=== PATIENT | female | born 1955 | race Caucasian/White ===

== ENCOUNTER 2020-07-24 10:16 | Outpatient (REF) | payer MEDICARE, SELFPAY ==
[2020-07-24 12:20] LABS: Alanine Aminotransferase 10 U/L (0-31); Albumin Level 4.4 g/dL (3.5-5.0); Alkaline Phosphatase 111 U/L (39-117); Anion Gap 17 (12-20); Aspartate Amino Transferase 19 U/L (5-31); Bilirubin Total 0.3 mg/dL (0.0-1.0); Blood Urea Nitrogen 27 mg/dL (9-16); Calcium 9.6 mg/dL (8.4-10.2); Carbon Dioxide 27 mmol/L (22-29); Chloride 100 mmol/L (96-108); Cholesterol 286 mg/dL; Estimated Glomerular Filt Rate 38; Glucose Random 98 mg/dL (60-115); HDL Cholesterol 45 mg/dL; LDL Cholesterol Calculated 185 mg/dl; Potassium 4.4 mmol/l (3.3-5.1); Sodium 140 mmol/L (135-145); Total Protein 7.6 g/dL (6.5-8.0); Triglycerides 281 mg/dL
[2020-07-24 12:32] LABS: Creatinine Urine 257.19 mg/dL; Microalbum/Creatinine Ratio Ur 63.3 ug/mg cr
== END 2020-07-24 10:17 | disposition home or self-care (01) ==
LOC: HO.LAB 10:16
PROVIDERS: PCP Family Medicine; Visit Provider Family Medicine
DX: I10 Essential (primary) hypertension (principal)
CPT/HCPCS: 80053; 80061; 82043; 84443

== ENCOUNTER → 2020-07-31 13:09 | Outpatient (BNVA) | payer MEDICARE, SELFPAY | PROVIDERS: PCP Family Medicine; Visit Provider Internal Medicine | DX: I26.99 Other pulmonary embolism without acute cor pulmonale (principal); Z79.01 Long term (current) use of anticoagulants; Z51.81 Encounter for therapeutic drug level monitoring | CPT/HCPCS: 85610; 99211 ==

== ENCOUNTER → 2020-08-14 10:04 | Outpatient (BNVA) | payer MEDICARE, SELFPAY | PROVIDERS: PCP Family Medicine; Visit Provider Internal Medicine | DX: I26.99 Other pulmonary embolism without acute cor pulmonale (principal); Z51.81 Encounter for therapeutic drug level monitoring; Z79.01 Long term (current) use of anticoagulants | CPT/HCPCS: 85610; 99211 ==

== ENCOUNTER 2020-08-27 10:00 | Outpatient (RCR) | payer MEDICARE, SELFPAY ==
--- NOTE | 2020-07-30 10:20 | MHC.PT.OD ---
[facility] [place] Office [place] Office [place] Office [address] Joi Gold [address] [phone] F: [phone] F: [phone] F: [phone] F: [phone] Physical Therapy Daily Note Diagnosis: LOW BACK PAIN Date of Surgery: Date of Evaluation: 05/31/20 Treatments to Date: 17 Cancellations to Date: 1 No Shows to Date: 0 Authorized Visits: 18 Insurance End Date: 09/02/20 Precautions/ Contraindications:h/o cancer Subjective: SAME . PAIN IS PRIMARILY WHEN PERFORMING SIT TO STAND XFERS AND DURING INITIAL FEW MOMENTS OF WALKING. ANNABELLA WILL BE SEEING MD THIS WEDNESDAY Pain Score: 6 Pain Location: RIGHT ANTERIOR THIGH AND GROIN Objective Flowsheet: Tests & Measures LE MMT TESTING REVEALS RIGHT HIP 5/5 T/O WITH EXCEPTION OF HIP FLEXION 3/5 (PAIN) HAMSTRING ROM IS 140 DEGREES RIGHT, 150 DEGREES LEFT PSOAS ROM RYAN 130 DEGREES CONCETTA AND FADIR TESTS (+) ON RIGHT (+) QUADRANT TEST RIGHT Exercises recumbent bike (bucket seat) seat at 7 x 12 mins, QS level 1 BRIDGES 3 X 10 HL hip add ball squeeze 3 x 10 hip ER with RTB 3 x 10 SLR 2 x5 sets saq 3 x 15 ryan prone knee flexion stretching with strap 2 reps x 30 seconds perf ryan SL HIP ABD 3 X 10 ROCKER BOARD IN AP AND LATERAL ORIENTATIONS FOR WEIGHT SHIFT AND BALANCE ACTIVITIES 4 INCH STEP UPS AND SIDE UPS 30 REPS EA posterior, lateral and inferior hip mobilizations grades 2 and 3 Soft tissue mobilizaiton techniques to anterior thigh and psoas Modalities prior to mobilization MH to anterior thigh x 8 mins Assessment: PAIN LEVELS HAVE REMAINED ABOUT THE SAME AND DYSFUNCTION IS PRIMARILY FOLLOWING SIT TO STAND XFERS AND INITIAL WALKING. SHE WILL F/U WITH MD ON WEDNESDAY. OVERALL RELIEF WITH JOINT MOBILIZATION AND INCREASED STRENGTH IS DEMONSTRATED BUT PAIN LEVELS HAVE NOT SUBJECTIVELY CHANGED. SHE DOES DEMONSTRATE S/S OF HIP OA WITH SPECIAL TESTING AND MAY BENEFIT FROM FURTHER IMAGING STUDIES. PT Plan: HIP AND CORE STRENGTHENING, GAIT AND BALANCE TRAINING, STMT AND Jt MOBILIZATIONS, Pt EDUC - REVIEW AND PROGRESS HEP Discharge Today? No Short Term Goals: independent with hep and self management of symptoms in 2 weeks (MET) Range Technician Goals: TO PERFORM ALL ADLs WITHOUT RESTRICTION AND PAIN NO GREATER THAN 3/10 IN 5 WEEKS TO DEMONSTRATE FULL FUNCTIONAL SQUAT WITH CORRECT MECHANICS AND WITHOUT CUING IN 5 WEEKS TO REPORT AMBULATING WITHOUT RESTRICTION ON VARIOUS SURFACES IN 5 WEEKS Electronically signed by: ESTEFANI SIMPSON PT, DPT
--- NOTE | 2020-08-22 15:10 | MHC.PT.DC ---
[facility] [place] Office [place] Office [place] Office [address] Joi Gold [address] [phone] F: [phone] F: [phone] F: [phone] F: [phone] Physical Therapy Discharge Report Diagnosis: Low back pain Date of Surgery: Date of Evaluation: 05/31/20 Date of Discharge: 08/22/20 Treatments to Date: 23 Cancellations to Date: 1 No Shows to Date: 0 Discharge Status: Achieved Goals Improved Function Independent with HEP Recommend MD Follow-up Discharge Summary: Luz Maria has progressed well in PT and is independent with HEP and is DCed to home at this time. She does continue to demonstrate significant hip stiffness when performing sit to stand transfers and in initating gait. At this time she appears to have plateaued in therapy so we recommend MD follow up and possible radiographs. Electronically signed by: Elaine Varela PT, DPT Please sign and return to therapist. Thank you for your referral.
--- NOTE | 2020-08-27 13:51 | MHC.PT.DC ---
[facility] [place] Office [place] Office [place] Office [address] Joi Gold [address] [phone] F: [phone] F: [phone] F: [phone] F: [phone] Physical Therapy Discharge Report Diagnosis: Low back pain Date of Surgery: Date of Evaluation: 05/31/20 Date of Discharge: 08/22/20 Treatments to Date: 23 Cancellations to Date: 1 No Shows to Date: 0 Discharge Status: Achieved Goals Improved Function Independent with HEP Recommend MD Follow-up Discharge Summary: Luz Maria has progressed well in PT and is independent with HEP and is DCed to home at this time. She does continue to demonstrate significant hip stiffness when performing sit to stand transfers and in initating gait. At this time she appears to have plateaued in therapy so we recommend MD follow up and possible radiographs. Electronically signed by: Elaine Varela PT, DPT Please sign and return to therapist. Thank you for your referral.
== END 2021-06-10 13:30 | disposition home or self-care (01) ==
LOC: HO.PT 10:00
PROVIDERS: PCP Family Medicine; Visit Provider Family Medicine
DX: S39.012D Strain of muscle, fascia and tendon of lower back, subsequent encounter (principal)
CPT/HCPCS: 97110; 97140; 97164; 97530

== ENCOUNTER → 2020-09-11 09:57 | Outpatient (BNVA) | payer MEDICARE, SELFPAY | PROVIDERS: PCP Family Medicine; Visit Provider Internal Medicine | DX: I26.99 Other pulmonary embolism without acute cor pulmonale (principal); Z51.81 Encounter for therapeutic drug level monitoring; Z79.01 Long term (current) use of anticoagulants | CPT/HCPCS: 85610; 99211 ==

== ENCOUNTER → 2020-10-08 10:32 | Outpatient (BNVA) | payer MEDICARE, SELFPAY | PROVIDERS: PCP Family Medicine; Visit Provider Internal Medicine | DX: I26.99 Other pulmonary embolism without acute cor pulmonale (principal); Z51.81 Encounter for therapeutic drug level monitoring; Z79.01 Long term (current) use of anticoagulants | CPT/HCPCS: 85610; 99211 ==

== ENCOUNTER → 2020-10-22 10:39 | Outpatient (BNVA) | payer MEDICARE, SELFPAY | PROVIDERS: PCP Family Medicine; Visit Provider Internal Medicine | DX: I26.99 Other pulmonary embolism without acute cor pulmonale (principal); Z51.81 Encounter for therapeutic drug level monitoring; Z79.01 Long term (current) use of anticoagulants | CPT/HCPCS: 85610; 99211 ==

== ENCOUNTER → 2020-11-05 10:41 | Outpatient (BNVA) | payer MEDICARE, SELFPAY | PROVIDERS: PCP Family Medicine; Visit Provider Internal Medicine | DX: I26.99 Other pulmonary embolism without acute cor pulmonale (principal); Z51.81 Encounter for therapeutic drug level monitoring; Z79.01 Long term (current) use of anticoagulants | CPT/HCPCS: 85610; 99211 ==

== ENCOUNTER → 2020-12-04 10:09 | Outpatient (BNVA) | payer MEDICARE, SELFPAY | PROVIDERS: PCP Family Medicine; Visit Provider Internal Medicine | DX: I26.99 Other pulmonary embolism without acute cor pulmonale (principal); Z51.81 Encounter for therapeutic drug level monitoring; Z79.01 Long term (current) use of anticoagulants | CPT/HCPCS: 85610; 99211 ==

== ENCOUNTER → 2021-01-02 11:05 | Outpatient (BNVA) | payer MEDICARE, SELFPAY | PROVIDERS: PCP Family Medicine; Visit Provider Internal Medicine | DX: I26.99 Other pulmonary embolism without acute cor pulmonale (principal); Z51.81 Encounter for therapeutic drug level monitoring; Z79.01 Long term (current) use of anticoagulants | CPT/HCPCS: 85610; 99211 ==

== ENCOUNTER 2021-01-22 12:40 | Emergency (ER) | payer MEDICARE, SELFPAY ==
--- NOTE | ~2021-01-22 | CT_ITS ---
EXAMINATION: CT HEAD WITHOUT CONTRAST CLINICAL INFORMATION: Dizziness and weakness COMPARISON: None TECHNIQUE: Contiguous axial imaging was performed from the skull base to vertex without intravenous administration of contrast. This CT examination was performed using dose optimization techniques as appropriate, variously including the following: *Automated exposure control *Adjustment of mA and/or kV according to patient size (this includes techniques or standardized protocols for targeted exams where dose is matched to indication/reason for exam; i.e. extremities or head) *Use of iterative reconstruction technique DLP: 601 mGy-cm FINDINGS: There is no evidence of acute intracranial hemorrhage or territorial infarction. No abnormal mass effect or midline shift is appreciated. Anderson-white differentiation is well preserved. No extra-axial fluid collections. The ventricular system and cortical sulci are normal in size for age. There are areas of low density in the periventricular and subcortical white matter, most consistent with sequelae of microvascular ischemic change. 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 The osseous structures and soft tissues are normal. There are calcifications of the cavernous internal carotid arteries. The visualized paranasal sinuses and mastoid air cells are well aerated. CT/CT head/brain wo con IMPRESSION: Chronic microvascular ischemic changes with no CT evidence of acute intracranial abnormality.
--- NOTE | ~2021-01-22 | CT_ITS ---
EXAMINATION: CTA CHEST PE STUDY, CT ABDOMEN AND PELVIS CLINICAL INFORMATION: Short of breath. Weakness, weight loss COMPARISON: No pertinent prior studies are available for comparison. TECHNIQUE: Prior to contrast administration, noncontrast localization images were obtained. After the administration of 100 mL of Omnipaque 350 nonionic IV contrast, contiguous thin slice helical images were obtained through the thorax. Following this the examination was continued through the abdomen and then pelvis. Reformatted MIP images in the coronal and sagittal planes as well as thin slice reformatted images of coronal and sagittal planes were obtained at the acquisition workstation. This CT examination was performed using dose optimization techniques as appropriate, variously including the following: *Automated exposure control *Adjustment of mA and/or kV according to patient size (this includes techniques or standardized protocols for targeted exams where dose is matched to indication/reason for exam; i.e. extremities or head) *Use of iterative reconstruction technique DLP: 1132 mGy-cm. FINDINGS: CHEST: The bolus timing on this study was acceptable for visualization of the pulmonary arterial tree. There are no intraluminal pulmonary arterial filling defects present to suggest pulmonary embolism. Unfortunately there are bilateral pulmonary nodules including a 2.3 cm centrally cavitating right upper lobe pulmonary nodule and a medial left lower lobe pleural-based 3.2 cm nodule/mass. The older bilateral pulmonary nodules are smaller with distribution suggesting metastatic spread. There is a moderate-sized right pleural effusion with associated partial collapse of the right lower lobe and right middle lobe as well as pleural-based nodularity. There is focal narrowing of the right mainstem bronchus with encasement from a right infrahilar mass difficult to accurately measure from the adjacent collapsed lung but this measures at least 5.3 cm in maximal diameter. This appears to be contiguous with right hilar adenopathy extending into the subcarinal location. The heart is normal in size. No evidence of ventricular septal bowing or right heart strain. The mediastinum and great vessels are normal. There is no pericardial effusion or pericardial thickening. ABDOMEN/PELVIS: Liver, Gallbladder and Biliary Tree: The liver is normal in size, shape, and attenuation. No focal hepatic lesion or biliary ductal dilatation is present. The gallbladder is unremarkable with no evidence of radiopaque gallstones, gallbladder wall thickening, or obvious pericholecystic inflammatory changes. Pancreas: Unremarkable. Spleen: Unremarkable. Adrenal Glands: Unremarkable. Kidneys and Ureters: The kidneys are normal in size, shape, and attenuation. No hydronephrosis, hydroureter, or calculi seen. No perinephric stranding. Bladder: Decompressed but otherwise unremarkable Gastrointestinal Tract: There is scattered colonic diverticulosis but no colonic wall thickening or pericolonic inflammatory change to suggest diverticulitis. Normal-appearing appendix in the right lower quadrant. Visualized small bowel unremarkable Abdominal Wall: There is a ill-defined peripherally enhancing 4.8 cm mass lesion within the right gluteal musculature likely representing metastatic focus Lymphovascular Structures: Vascular calcification within the aorta iliac system Pelvic Viscera: Unremarkable. Osseous Structures: Chronic deformity of the right femoral neck suggesting a chronic basicervical neck fracture. This does not appear to be acute but could be clinically correlated. Multilevel degenerative changes seen throughout the spine CT/CT angio chest PE protocol IMPRESSION: Unfortunately there are multiple pulmonary nodules and masses with evidence suggesting metastatic disease as described above. Likely the primary lesion arose in the medial infrahilar right lower lobe with direct extension into the right hilar location. There is moderate size right pleural effusion with multiple pleural-based nodules seen. Bilateral pulmonary nodules are noted otherwise as described above. Additionally there is a 4.8 cm soft tissue mass in the right gluteal musculature is also more suggestive of a metastatic lesion VTE: Negative This critical result was discussed with Saranya at 01/22/2021 7:32 PM and it was ascertained that the content and urgency of the report was understood at the time of direct communication.
[2021-01-22 12:55] VITALS: BP 127/75; PULSE 100; RESP 18; TEMP 36.6; O2SAT 96
[2021-01-22 13:27] LABS: Basophils Absolute Auto 0.1 X10*3/uL (0.0-0.2); Eosinophils Percent Auto 6.7 % (0-4); Hematocrit 35.7 % (37-47); Hemoglobin 11.8 g/dl (12.0-16.0); Imm Gran Abs Auto 0.08 X10*3/uL (0.00-0.03); Imm Gran Pct Auto 0.6 % (0.0-0.4); Lymphocytes Absolute Auto 0.6 X10*3/uL (1.2-4.9); Lymphocytes Percent Auto 3.9 % (20-40); MANUAL DIFF FLAG SCAN; Mean Corpuscular HGB Conc 33.1 g/dl (31.0-35.0); Mean Corpuscular Hemoglobin 29.4 pg (27.0-33.0); Mean Corpuscular Volume 88.8 fL (80-98); Monocytes Absolute Auto 0.8 X10*3/uL (0.1-1.2); Monocytes Percent Auto 5.5 % (2-11); Neutrophils Absolute Auto 11.7 X10*3/uL (2.0-8.3); Neutrophils Percent Auto 82.3 % (45-73); Platelet Count 571 X10*3/uL (160-400); Red Blood Count 4.02 X10*6/uL (4.20-5.50); Red Cell Distribution Width 13.9 % (11.0-16.0); SCAN SMEAR FLAG 1; White Blood Count 14.3 X10*3/uL (4.8-10.8)
[2021-01-22 13:45] LABS: SLIDE REVIEW VERIFIED
[2021-01-22 14:11] LABS: Anion Gap 23 (12-20); Blood Urea Nitrogen 27 mg/dL (9-16); Calcium 9.6 mg/dL (8.4-10.2); Carbon Dioxide 25 mmol/L (22-29); Chloride 90 mmol/L (96-108); Creatinine Clr Calc Pharmacy 33.7; Estimated Glomerular Filt Rate 38; Glucose Random 144 mg/dL (60-115); Potassium 3.4 mmol/L (3.3-5.1); Sodium 135 mmol/L (135-145)
--- NOTE | 2021-01-22 17:51 | ED.GENADULT ---
HPI - General Adult General Chief complaint: General Medical Stated complaint: Weakness Source: patient Mode of arrival: ambulatory Limitations: no limitations History of Present Illness HPI narrative: 65-year-old female with past medical history of cancer of the vulva in remission since 2019 after chemotherapy and radiation treatments, history of PE, hypertension, and hyperlipidemia presents with several months of weakness, weight loss, wheezing, and fatigue. She does not describe the loss of sensation of wanting to eat, she states that she is too tired to eat. She does not report any nausea or vomiting, denies chest pain or pressure, palpitations, abdominal pain, abdominal distention, dysuria, hematuria, or edema. Onset (ago): month(s) Location: chest Radiation: non-radiation Severity: severe Associated symptoms: cough, malaise and weakness Treatments prior to arrival: none Related Data Home Medications Medication Instructions Recorded Confirmed bromfenac 0.07 % eye drops 0 drp OPHTHALMIC (EYE) 11/04/20 12/04/20 loteprednol etabonate 0.38 % eye drp OPHTHALMIC-RIGHT 11/04/20 12/04/20 gel drops ofloxacin 0.3 % eye drops 0 drp OPHTHALMIC (EYE) 11/04/20 12/04/20 Previous Rx's Medication Instructions Recorded amlodipine 10 mg tablet 10 mg PO DAILY 90 Days #90 tab 08/01/20 hydrochlorothiazide 25 mg tablet 25 mg PO DAILY 90 Days #90 tab 08/01/20 warfarin 4 mg tablet 4 mg PO DAILY #90 tab 09/16/20 diclofenac sodium 1 % topical gel 2 g TOPICAL BID #100 g 10/17/20 metoprolol succinate 25 mg 25 mg PO DAILY #30 tab 01/17/21 tablet,extended release 24 hr levofloxacin 750 mg PO Q24H 6 Days #6 tab 01/22/21 lorazepam [Ativan] 0.5 mg PO TID PRN #20 tab 01/22/21 Allergies Allergy/AdvReac Type Severity Reaction Status Date / Time mold Allergy Severe diff Verified 11/05/20 10:46 breathing Review of Systems Review of Systems: Constitutional: Positive weight loss, positive weakness, positive fatigue No Fever, No Chills ENT/Mouth: No sore throat, No Rhinorrhea, No Swallowing Difficulty Eyes: No Eye Pain, No Swelling, No Redness Cardiovascular: No Chest Pain, positive SOB, No Orthopnea, no Edema Respiratory: Positive Cough, No Sputum, No Wheezing, positive dyspnea Gastrointestinal: No Nausea, No Vomiting, No Diarrhea, No abdominal Pain, No Hematochezia, No Melena Genitourinary: No Dysuria, No Urinary Frequency, No Hematuria Musculoskeletal: No joint pain, No Myalgias Skin: No Skin Lesions, No rash Neuro: No Weakness, No Numbness, No Dizziness, No Headache Psych: No Anxiety/Panic, No Depression Heme/Lymph: No Bruising, No Lymphadenopathy Endocrine: No Polyuria, No Polydipsia Yes all other systems are reviewed and are negative [facility] Past Medical History Attestation statement: The following information was validated with the patient. Source: old records reviewed Medical History Cataracts, both eyes Diarrhea HTN (hypertension) Pneumonia Pulmonary embolism Vulva cancer Family History Family History Father Heart failure Lymphoma Skin cancer HTN (hypertension) CVD (cardiovascular disease) Mother Myocardial infarction Breast cancer CVD (cardiovascular disease) Brother No problems noted. Son No problems noted. Daughter No problems noted. Social History Social History Advance Directives: No Advance Directives Information Provided: Yes Physical Exam Vital Signs: Vital Signs: Last Vital Signs Temp 97.8 F 01/22/21 20:46 Pulse 94 01/22/21 20:46 Resp 18 01/22/21 20:46 BP 137/84 01/22/21 20:46 Pulse Ox 95 01/22/21 20:46 Body Mass Index 20.0 Appearance: Alert. Oriented X3. No acute distress. Appears fatigued and pale Eyes: Pupils equal, round and reactive to light. EOMI, nonicteric sclera ENT: Pharynx normal. Dry mucous membranes Neck: Normal inspection. Neck supple. CVS: Tachycardic heart rate and rhythm. Pulses normal. Respiratory: No respiratory distress. Lung sounds diminished bilaterally Abdomen: Soft and nontender. No palpable masses. Skin: Skin warm and dry. Normal skin color. Normal skin turgor. Extremities: No lower extremity edema. Strength 5/5, full range of motion Neuro: No motor deficit. No sensory deficit. Cranial nerves 2-12 intact, no focal neural deficits Course Course Course Narrative: 65-year-old female presents with weakness, fatigue, weight loss. Does have a history of cancer and PE, will order CT of head, chest, abdomen and pelvis to rule out PE, possible metastatic disease. CBC indicates white count of 14.3 hemoglobin and hematocrit of 11.8/35.7, chemistries show a small anion gap 23 BUN of 27. Will resuscitate with fluids prior to contrast. Head CT clear, chest CTA abdomen and pelvis indicates metastatic disease to the lungs and gluteus muscle. This was discussed in detail with patient, patient will follow-up with her own oncologist and primary care physician. Considering her elevated white count and fluid collection we will treat with Levaquin, provide albuterol inhaler for shortness of breath, and give Ativan for anxiety and shortness of breath as needed. Patient is afebrile, and would like to be discharged to home versus inpatient admitted or penitentiary facility, case management social versus consult. Patient verbalized understanding of and agrees to plan for discharge home. Medical Decision Making Differential Diagnosis Differential Diagnosis: CVA, PE, metastatic disease, anemia Medical Records Medical records reviewed: Yes I reviewed the patient's medical records. Lab Data Lab results reviewed: Yes I reviewed the patient's lab results. Result diagrams: 01/22/21 13:12 01/22/21 13:12 Labs: Lab Results 01/22/21 01/22/21 01/22/21 Range/Units 13:12 13:12 13:12 WBC 14.3 H (4.8-10.8) X10*3/uL RBC 4.02 L (4.20-5.50) X10*6/uL Hgb 11.8 L (12.0-16.0) g/dl Hct 35.7 L (37-47) % MCV 88.8 (80-98) fL MCH 29.4 (27.0-33.0) pg MCHC 33.1 (31.0-35.0) g/dl RDW 13.9 (11.0-16.0) % Plt Count 571 H (160-400) X10*3/uL MPV 8.0 L (9.4-12.3) fL Immature Gran % (Auto) 0.6 H (0.0-0.4) % Neut % (Auto) 82.3 H (45-73) % Lymph % (Auto) 3.9 L (20-40) % Perry % (Auto) 5.5 (2-11) % Eos % (Auto) 6.7 H (0-4) % Baso % (Auto) 1.0 (0-2) % Lymph # (Auto) 0.6 L (1.2-4.9) X10*3/uL Perry # (Auto) 0.8 (0.1-1.2) X10*3/uL Eos # (Auto) 1.0 H (0.0-0.4) X10*3/uL Baso # (Auto) 0.1 (0.0-0.2) X10*3/uL Abs Immat Gran (auto) 0.08 H (0.00-0.03) X10*3/uL Absolute Neuts (auto) 11.7 H (2.0-8.3) X10*3/uL Absolute Nucleated RBC 0.000 (0.0-0.012) X10*3/uL Nucleated RBC % (auto) 0.0 (0.0-0.2) /100WBC Smear Tech's Comments VERIFIED Hold Blue Top SEE NOTE Sodium 135 (135-145) mmol/L Potassium 3.4 (3.3-5.1) mmol/L Chloride 90 L (96-108) mmol/L Carbon Dioxide 25 (22-29) mmol/L Anion Gap 23 H (12-20) BUN 27 H (9-16) mg/dL Creatinine 1.39 (0.5-1.4) mg/dL Estim Creat Clear Calc 33.7 Estimated GFR 38 Random Glucose 144 H D (60-115) mg/dL Calcium 9.6 (8.4-10.2) mg/dL Imaging Data CT scan - head: Attestation: I personally reviewed and interpreted this imaging study as follows: Radiologist's impression: EXAMINATION: CT HEAD WITHOUT CONTRAST CLINICAL INFORMATION: Dizziness and weakness COMPARISON: None TECHNIQUE: Contiguous axial imaging was performed from the skull base to vertex without intravenous administration of contrast. This CT examination was performed using dose optimization techniques as appropriate, variously including the following: *Automated exposure control *Adjustment of mA and/or kV according to patient size (this includes techniques or standardized protocols for targeted exams where dose is matched to indication/reason for exam; i.e. extremities or head) *Use of iterative reconstruction technique DLP: 601 mGy-cm FINDINGS: There is no evidence of acute intracranial hemorrhage or territorial infarction. No abnormal mass effect or midline shift is appreciated. Anderson-white differentiation is well preserved. No extra-axial fluid collections. The ventricular system and cortical sulci are normal in size for age. There are areas of low density in the periventricular and subcortical white matter, most consistent with sequelae of microvascular ischemic change. 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 The osseous structures and soft tissues are normal. There are calcifications of the cavernous internal carotid arteries. The visualized paranasal sinuses and mastoid air cells are well aerated. CT/CT head/brain wo con IMPRESSION: Chronic microvascular ischemic changes with no CT evidence of acute intracranial abnormality. CTA PE and abdomen pelvis: Attestation: I personally reviewed and interpreted this imaging study as follows: Radiologist's impression: EXAMINATION: CTA CHEST PE STUDY, CT ABDOMEN AND PELVIS CLINICAL INFORMATION: Short of breath. Weakness, weight loss COMPARISON: No pertinent prior studies are available for comparison. TECHNIQUE: Prior to contrast administration, noncontrast localization images were obtained. After the administration of 100 mL of Omnipaque 350 nonionic IV contrast, contiguous thin slice helical images were obtained through the thorax. Following this the examination was continued through the abdomen and then pelvis. Reformatted MIP images in the coronal and sagittal planes as well as thin slice reformatted images of coronal and sagittal planes were obtained at the acquisition workstation. This CT examination was performed using dose optimization techniques as appropriate, variously including the following: *Automated exposure control *Adjustment of mA and/or kV according to patient size (this includes techniques or standardized protocols for targeted exams where dose is matched to indication/reason for exam; i.e. extremities or head) *Use of iterative reconstruction technique DLP: 1132 mGy-cm. FINDINGS: CHEST: The bolus timing on this study was acceptable for visualization of the pulmonary arterial tree. There are no intraluminal pulmonary arterial filling defects present to suggest pulmonary embolism. Unfortunately there are bilateral pulmonary nodules including a 2.3 cm centrally cavitating right upper lobe pulmonary nodule and a medial left lower lobe pleural-based 3.2 cm nodule/mass. The older bilateral pulmonary nodules are smaller with distribution suggesting metastatic spread. There is a moderate-sized right pleural effusion with associated partial collapse of the right lower lobe and right middle lobe as well as pleural-based nodularity. There is focal narrowing of the right mainstem bronchus with encasement from a right infrahilar mass difficult to accurately measure from the adjacent collapsed lung but this measures at least 5.3 cm in maximal diameter. This appears to be contiguous with right hilar adenopathy extending into the subcarinal location. The heart is normal in size. No evidence of ventricular septal bowing or right heart strain. The mediastinum and great vessels are normal. There is no pericardial effusion or pericardial thickening. ABDOMEN/PELVIS: Liver, Gallbladder and Biliary Tree: The liver is normal in size, shape, and attenuation. No focal hepatic lesion or biliary ductal dilatation is present. The gallbladder is unremarkable with no evidence of radiopaque gallstones, gallbladder wall thickening, or obvious pericholecystic inflammatory changes. Pancreas: Unremarkable. Spleen: Unremarkable. Adrenal Glands: Unremarkable. Kidneys and Ureters: The kidneys are normal in size, shape, and attenuation. No hydronephrosis, hydroureter, or calculi seen. No perinephric stranding. Bladder: Decompressed but otherwise unremarkable Gastrointestinal Tract: There is scattered colonic diverticulosis but no colonic wall thickening or pericolonic inflammatory change to suggest diverticulitis. Normal-appearing appendix in the right lower quadrant. Visualized small bowel unremarkable Abdominal Wall: There is a ill-defined peripherally enhancing 4.8 cm mass lesion within the right gluteal musculature likely representing metastatic focus Lymphovascular Structures: Vascular calcification within the aorta iliac system Pelvic Viscera: Unremarkable. Osseous Structures: Chronic deformity of the right femoral neck suggesting a chronic basicervical neck fracture. This does not appear to be acute but could be clinically correlated. Multilevel degenerative changes seen throughout the spine CT/CT angio chest PE protocol IMPRESSION: Unfortunately there are multiple pulmonary nodules and masses with evidence suggesting metastatic disease as described above. Likely the primary lesion arose in the medial infrahilar right lower lobe with direct extension into the right hilar location. There is moderate size right pleural effusion with multiple pleural-based nodules seen. Bilateral pulmonary nodules are noted otherwise as described above. Additionally there is a 4.8 cm soft tissue mass in the right gluteal musculature is also more suggestive of a metastatic lesion VTE: Negative This critical result was discussed with Saranya at 01/22/2021 7:32 PM and it was ascertained that the content and urgency of the report was understood at the time of direct communication. Discharge Plan Discharge Clinical Impression: Metastatic cancer Patient Disposition: Home, Self-Care Instructions: Lung Cancer (DC) Additional Instructions: You were evaluated for weakness and weight loss. CT scan of the chest and abdomen indicates a metastatic cancer to the lungs and gluteus muscle. Please follow-up with your oncologist. We provided you with a printout of your results and a disc. Please take Levaquin 750 mg for the next 6 days. You received her 1st dose in the emergency department. Use albuterol inhaler every 4 hours as needed for shortness of breath. We prescribed Ativan 0.5 mg 3 times a day as needed. Thank you for choosing this emergency department for evaluation. Please follow-up with primary care physician as needed. Return to the emergency department for any new, concerning, or worsening symptoms. Prescriptions: New levofloxacin 750 mg tablet 750 mg PO Q24H 6 Days Qty: 6 RF: 0 lorazepam [Ativan] 0.5 mg tablet 0.5 mg PO TID PRN (Reason: Shortness breath, anxiety) Qty: 20 RF: 0 No Action amlodipine 10 mg tablet 10 mg PO DAILY 90 Days Qty: 90 RF: 4 hydrochlorothiazide 25 mg tablet 25 mg PO DAILY 90 Days Qty: 90 RF: 4 warfarin 4 mg tablet 4 mg PO DAILY Qty: 90 RF: 4 diclofenac sodium 1 % gel 2 g topical BID Qty: 100 RF: 1 metoprolol succinate 25 mg tablet extended release 24 hr 25 mg PO DAILY Qty: 30 RF: 1 Lotemax SM 0.38 % drops,gel ophthalmic-Right RF: 0 Prolensa 0.07 % drops 0 drp ophthalmic (eye) RF: 0 ofloxacin 0.3 % drops 0 drp ophthalmic (eye) RF: 0 Interventions: ED Discharge Assessment Last Done: 01/22/21 21:59 Discharge Date/Time: 01/22/21 22:11
[2021-01-22] MEDS: 0.9 % Sodium Chloride 1,000 ML 999 ML IVCONT (18:12)
[2021-01-22] MEDS: iohexoL 350 MG/ML 100 ML INFUS..BTL IV (18:59)
[2021-01-22 20:46] VITALS: BP 137/84; PULSE 94; RESP 18; TEMP 36.6; O2SAT 95
[2021-01-22] MEDS: Albuterol Sulfate 90 MCG 8 GM INHALER 2 PUFF INHALE (21:54)
[2021-01-22] MEDS: levoFLOXacin 750 MG TABLET PO (21:55)
== END 2021-01-22 22:11 | disposition home or self-care (01) ==
PROVIDERS: Emergency Provider Internal Medicine; PCP Family Medicine
DX: R53.1 Weakness (principal); C51.9 Malignant neoplasm of vulva, unspecified; C78.02 Secondary malignant neoplasm of left lung; C78.01 Secondary malignant neoplasm of right lung; C79.89 Secondary malignant neoplasm of other specified sites; I10 Essential (primary) hypertension; E78.5 Hyperlipidemia, unspecified; Z86.711 Personal history of pulmonary embolism; Z79.01 Long term (current) use of anticoagulants
CPT/HCPCS: 36415; 70450; 71275; 74177; 80048; 85025; 96360; 99283; 99284; Q9967

== ENCOUNTER → 2021-02-06 11:16 | Outpatient (BNVA) | payer MEDICARE, SELFPAY | PROVIDERS: PCP Family Medicine; Visit Provider Internal Medicine | DX: I26.99 Other pulmonary embolism without acute cor pulmonale (principal); Z79.01 Long term (current) use of anticoagulants; Z51.81 Encounter for therapeutic drug level monitoring | CPT/HCPCS: 85610; 99211 ==

== ENCOUNTER → 2021-02-11 11:44 | Outpatient (BNVA) | payer MEDICARE, SELFPAY | PROVIDERS: PCP Family Medicine; Visit Provider Internal Medicine | DX: I26.99 Other pulmonary embolism without acute cor pulmonale (principal); Z51.81 Encounter for therapeutic drug level monitoring; Z79.01 Long term (current) use of anticoagulants | CPT/HCPCS: 85610; 99211 ==

== ENCOUNTER → 2021-02-21 11:11 | Outpatient (BNVA) | payer MEDICARE, SELFPAY | PROVIDERS: PCP Family Medicine; Visit Provider Internal Medicine | DX: I26.99 Other pulmonary embolism without acute cor pulmonale (principal); Z51.81 Encounter for therapeutic drug level monitoring; Z79.01 Long term (current) use of anticoagulants | CPT/HCPCS: 85610; 99211 ==

== ENCOUNTER → 2021-02-28 13:16 | Outpatient (BNVA) | payer MEDICARE, SELFPAY | PROVIDERS: PCP Family Medicine; Visit Provider Internal Medicine | DX: I26.99 Other pulmonary embolism without acute cor pulmonale (principal); Z51.81 Encounter for therapeutic drug level monitoring; Z79.01 Long term (current) use of anticoagulants | CPT/HCPCS: 85610; 99211 ==

== ENCOUNTER → 2021-03-05 13:42 | Outpatient (BNVA) | payer MEDICARE, SELFPAY | PROVIDERS: PCP Family Medicine; Visit Provider Internal Medicine | DX: I26.99 Other pulmonary embolism without acute cor pulmonale (principal); Z51.81 Encounter for therapeutic drug level monitoring; Z79.01 Long term (current) use of anticoagulants | CPT/HCPCS: 85610; 99211 ==

== ENCOUNTER → 2021-03-11 13:58 | Outpatient (BNVA) | payer MEDICARE, SELFPAY | PROVIDERS: PCP Family Medicine; Visit Provider Internal Medicine | DX: I26.99 Other pulmonary embolism without acute cor pulmonale (principal); Z51.81 Encounter for therapeutic drug level monitoring; Z79.01 Long term (current) use of anticoagulants | CPT/HCPCS: 85610; 99211 ==

== ENCOUNTER → 2021-03-24 11:28 | Outpatient (BNVA) | payer MEDICARE, SELFPAY | PROVIDERS: PCP Family Medicine; Visit Provider Internal Medicine | DX: I26.99 Other pulmonary embolism without acute cor pulmonale (principal) | CPT/HCPCS: Q3014 ==

== ENCOUNTER → 2021-03-26 13:33 | Outpatient (BNVA) | payer MEDICARE, SELFPAY | PROVIDERS: PCP Family Medicine; Visit Provider Internal Medicine | DX: I26.99 Other pulmonary embolism without acute cor pulmonale (principal); Z51.81 Encounter for therapeutic drug level monitoring; Z79.01 Long term (current) use of anticoagulants | CPT/HCPCS: Q3014 ==

== ENCOUNTER → 2021-03-27 15:28 | Outpatient (BNVA) | payer MEDICARE, SELFPAY | PROVIDERS: PCP Family Medicine; Visit Provider Internal Medicine | DX: I26.99 Other pulmonary embolism without acute cor pulmonale (principal); Z51.81 Encounter for therapeutic drug level monitoring; Z79.01 Long term (current) use of anticoagulants | CPT/HCPCS: Q3014 ==

== ENCOUNTER → 2021-03-28 15:46 | Outpatient (BNVA) | payer MEDICARE, SELFPAY | PROVIDERS: PCP Family Medicine; Visit Provider Internal Medicine ==

== ENCOUNTER → 2021-03-31 15:02 | Outpatient (BNVA) | payer MEDICARE, SELFPAY | PROVIDERS: PCP Nurse Practitioner Family; Visit Provider Internal Medicine | DX: Z79.01 Long term (current) use of anticoagulants (principal) | CPT/HCPCS: Q3014 ==

== ENCOUNTER → 2021-04-01 11:34 | Outpatient (BNVA) | payer MEDICARE, SELFPAY | PROVIDERS: PCP Nurse Practitioner Family; Visit Provider Internal Medicine ==

== ENCOUNTER → 2021-04-08 11:11 | Outpatient (BNVA) | payer MEDICARE, SELFPAY | PROVIDERS: PCP Internal Medicine; Visit Provider Internal Medicine | DX: I26.99 Other pulmonary embolism without acute cor pulmonale (principal) | CPT/HCPCS: Q3014 ==

== ENCOUNTER → 2021-04-11 11:39 | Outpatient (BNVA) | payer MEDICARE, SELFPAY | PROVIDERS: PCP Family Medicine; Visit Provider Internal Medicine | DX: I26.99 Other pulmonary embolism without acute cor pulmonale (principal) | CPT/HCPCS: Q3014 ==

== ENCOUNTER → 2021-04-22 14:11 | Outpatient (BNVA) | payer MEDICARE, SELFPAY | PROVIDERS: PCP Family Medicine; Visit Provider Internal Medicine | DX: I26.99 Other pulmonary embolism without acute cor pulmonale (principal) | CPT/HCPCS: Q3014 ==

== ENCOUNTER → 2021-04-24 11:52 | Outpatient (BNVA) | payer MEDICARE, SELFPAY | PROVIDERS: PCP Family Medicine; Visit Provider Internal Medicine ==

== ENCOUNTER → 2021-04-30 14:22 | Outpatient (BNVA) | payer MEDICARE, SELFPAY | PROVIDERS: PCP Family Medicine; Visit Provider Internal Medicine | DX: I26.99 Other pulmonary embolism without acute cor pulmonale (principal) | CPT/HCPCS: Q3014 ==

== ENCOUNTER → 2021-05-05 16:03 | Outpatient (BNVA) | payer MEDICARE, SELFPAY | PROVIDERS: PCP Family Medicine; Visit Provider Internal Medicine | DX: I26.99 Other pulmonary embolism without acute cor pulmonale (principal) | CPT/HCPCS: Q3014 ==

== ENCOUNTER → 2021-05-08 14:50 | Outpatient (BNVA) | payer MEDICARE, SELFPAY | PROVIDERS: PCP Family Medicine; Visit Provider Internal Medicine | DX: I26.99 Other pulmonary embolism without acute cor pulmonale (principal); Z51.81 Encounter for therapeutic drug level monitoring; Z79.01 Long term (current) use of anticoagulants | CPT/HCPCS: Q3014 ==

== ENCOUNTER → 2021-05-12 16:00 | Outpatient (BNVA) | payer MEDICARE, SELFPAY | PROVIDERS: PCP Family Medicine; Visit Provider Internal Medicine | DX: I26.99 Other pulmonary embolism without acute cor pulmonale (principal); Z79.01 Long term (current) use of anticoagulants; Z51.81 Encounter for therapeutic drug level monitoring | CPT/HCPCS: Q3014 ==

== ENCOUNTER → 2021-05-15 10:42 | Outpatient (BNVA) | payer MEDICARE, SELFPAY | PROVIDERS: PCP Family Medicine; Visit Provider Internal Medicine | DX: I26.99 Other pulmonary embolism without acute cor pulmonale (principal) | CPT/HCPCS: Q3014 ==

== ENCOUNTER → 2021-05-21 11:55 | Outpatient (BNVA) | payer MEDICARE, SELFPAY | PROVIDERS: PCP Family Medicine; Visit Provider Internal Medicine | DX: I26.99 Other pulmonary embolism without acute cor pulmonale (principal); Z51.81 Encounter for therapeutic drug level monitoring; Z79.01 Long term (current) use of anticoagulants | CPT/HCPCS: Q3014 ==

== ENCOUNTER → 2021-05-28 10:38 | Outpatient (BNVA) | payer MEDICARE, SELFPAY | PROVIDERS: PCP Family Medicine; Visit Provider Internal Medicine | DX: I26.99 Other pulmonary embolism without acute cor pulmonale (principal) | CPT/HCPCS: Q3014 ==